=== PATIENT | female | born 1975 | race Asian ===

== ENCOUNTER 2018-02-22 12:09 | Emergency (ER) | payer OTHER ==
[2018-02-22 12:16] VITALS: BP 133/90; PULSE 84; TEMP 97.9; BMI 24.7
[2018-02-22] MEDS ORDERED: BACITRACIN 15 GM TUBE TOPICAL OINTMENT TP ONE (12:41)
--- NOTE | 2018-02-22 12:47 | PDOC ---
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 Pt has history of hypothyroid , takes synthroid. no allergies, last tetanus is UTD. Pt states the source is currently getting tested. Past History - Past Medical History Allergies/Adverse Reactions: Allergies Allergy/AdvReac Type Severity Reaction Status Date / Time No Known Allergies Allergy Verified 02/22/18 12:13 Home Medications: Ambulatory Orders Cholecalciferol (Vitamin D3) [Vitamin D3] 50,000 unit PO ASDIR 02/12/16 Levothyroxine [Synthroid -] 75 mcg PO DAILY 02/12/16 Ubidecarenone [Co Q-10] 0 mg PO DAILY 02/12/16 Anemia: Yes COPD: No Thyroid Disease: Yes (HYPO) - Immunization History Immunization Up to Date: Yes - Suicide/Smoking/Psychosocial Hx Smoking History: Never smoked Hx Alcohol Use: No Drug/Substance Use Hx: No Substance Use Type: None General Medical PMHX - Other General PMHX Angina: No Review of Systems - Review of Systems Able to Perform ROS?: Yes Is the patient limited Colombian proficient: No Constitutional: No: Symptoms Reported HEENTM: No: Symptoms Reported Respiratory: No: Symptoms reported Cardiac (ROS): No: Symptoms Reported ABD/GI: No: Symptoms Reported : No: Symptoms Reported Musculoskeletal: No: Symptoms Reported Integumentary: Yes: Symptoms Reported *Physical Exam - Vital Signs Last Vital Signs Temp Pulse Resp BP Pulse Ox 97.9 F 84 18 133/90 99 02/22/18 12:14 02/22/18 12:14 02/22/18 12:14 02/22/18 12:14 02/22/18 12:14 - Physical Exam General Appearance: Yes: Nourished, Appropriately Dressed HEENT: positive: EOMI, ADELE Extremity: positive: Normal Capillary Refill, Other (left index finger lateral side with pinpoint puncture wound from needlestick no bleeding clean ) Integumentary: positive: Normal Color, Dry, Warm Neurologic: positive: Fully Oriented, Alert, Normal Mood/Affect, Normal Response , Motor Strength 5/5 Post Exposure - ED Protocol - Exposure Treatment Washing/Decontamination: Other (betadine) Source Patient HIV Status:: Unknown Is PEP indicated?: Yes Prophylaxis for HIV discussed?: Yes Prophylaxis given?: No Prophylaxis refused?: Yes Baseline bloods drawn prophylaxis:(use *Exposure-Hosp Emp): Yes - Referrals Employee Referred to Employee Health:: Yes Procedures - Additional Procedures Progress: 02/22/18 12:52 wound cleaned with betadine and bacitracin placed Medical Decision Making - Medical Decision Making 02/22/18 12:44 accidental needlestick to left index finger wearing gloves pt squeezed blood right away and washed with rubbing alcohol pt is UTD with tetanus does not want to start PEP now, will wait for the results of the source pt will follow up with Employee Health *DC/Admit/Observation/Transfer Diagnosis at time of Disposition: Needle stick injury of finger Qualifiers: Encounter type: initial encounter Qualified Code(s): S61.239A - Puncture wound without foreign body of unspecified finger without damage to nail, initial encounter - Discharge Dispostion Disposition: HOME Condition at time of disposition: Good - Referrals - Patient Instructions Printed Discharge Instructions: How to Handle Body Fluid Exposure -- Healthcare Worker Additional Instructions: please stop in Employee Health today to assure proper follow up on the source and your blood results keep the finger clean and dry bacitracin and bandaid daily until healed - Post Discharge Activity Forms/Work/School Notes: Back to Work
[2018-02-22 13:02] LABS: BASO % 0.8 % (0-2.0); EOS % 0.5 % (0-4.5); HEMATOCRIT 35.5 % (32.4-45.2); HEMOGLOBIN 11.7 GM/dL (10.7-15.3); LYMPH % 19.7 % (8-40); MCH 29.5 pg (25.7-33.7); MCHC 32.9 g/dl (32.0-36.0); MEAN CELL VOLUME 89.7 fl (80-96); MEAN PLT VOLUME 7.6 fl (7.5-11.1); MONO % 5.3 % (3.8-10.2); NEUT % 73.7 % (42.8-82.8); PLATELET COUNT 351 K/MM3 (134-434); RBC 3.95 M/mm3 (3.60-5.2); RDW 13.1 % (11.6-15.6); WHITE BLOOD COUNT 5.9 K/mm3 (4.0-10.0)
[2018-02-22 13:30] LABS: ALBUMIN 4.3 g/dl (3.4-5.0); ALK PHOS 58 U/L (45-117); ANION GAP 6 MMOL/L (8-16); BILIRUBIN,TOTAL 0.4 mg/dL (0.2-1); BLOOD UREA NITROGEN 6 mg/dL (7-18); CALCIUM 8.6 mg/dL (8.5-10.1); CHLORIDE 103 mmol/L (98-107); CHOLESTEROL 200 mg/dL (50-200); CO2 29 mmol/L (21-32); CREATININE 0.7 mg/dL (0.55-1.3); GAMMA GLUTAMYL TRANSPEPTIDASE 19 U/L (5-85); GLUCOSE,RANDOM 100 mg/dL (74-106); LDH 148 U/L (84-246); POTASSIUM 3.9 mmol/L (3.5-5.1); SGOT/AST 14 U/L (15-37); SGPT/ALT 18 U/L (13-61); SODIUM 137 mmol/L (136-145); TOT PROT 7.7 g/dl (6.4-8.2); TRIGLYCERIDES 143 mg/dL (0-150)
[2018-02-23 05:24] LABS: HBsAG SCREEN Negative (Negative)
== END 2018-02-22 13:12 | disposition home or self-care (01) ==
LOC: JERFT 12:09
DX: Z77.21 Contact with and (suspected) exposure to potentially hazardous body fluids (principal); W46.0XXA Contact with hypodermic needle, initial encounter; Y93.9 Activity, unspecified; Y92.239 Unspecified place in hospital as the place of occurrence of the external cause; E03.9 Hypothyroidism, unspecified
CPT/HCPCS: 36415; 80053; 82465; 82977; 83615; 84478; 85025; 86317; 86706; 86803; 87340; 87389; 99281-25

== ENCOUNTER 2018-05-17 13:35 | Emergency (ER) | payer OTHER ==
[2018-05-17 13:44] VITALS: BP 126/74; PULSE 84; BMI 25.6
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
[2018-05-17] MEDS ORDERED: IBUPROFEN 600 MG TABLET (FP) PO ONE ×2 (14:21→14:24)
[2018-05-17] MEDS ORDERED: ACETAMINOPHEN 325 MG TABLET (FP) PO ONE (14:26)
[2018-05-17] MEDS ORDERED: ACETAMINOPHEN 325 MG TABLET (FP) ONE (14:28)
== END 2018-05-17 14:41 | disposition home or self-care (01) ==
LOC: JERFT 13:35
DX: M25.512 Pain in left shoulder (principal); Y04.2XXA Assault by strike against or bumped into by another person, initial encounter; Y93.F9 Activity, other caregiving; Y92.230 Patient room in hospital as the place of occurrence of the external cause; Y99.0 Civilian activity done for income or pay; E03.9 Hypothyroidism, unspecified; Y07.59 Other non-family member, perpetrator of maltreatment and neglect
CPT/HCPCS: 99281-25

== ENCOUNTER 2021-01-17 08:08 | Emergency (ER) | payer OTHER, BC ==
[2021-01-17 08:13] VITALS: BP 155/81; PULSE 77; TEMP 97.7; BMI 25.6
[2021-01-17] MEDS ORDERED: LIDOCAINE 5% TOPICAL PATCH TP ONE (08:49)
[2021-01-17] MEDS ORDERED: KETOROLAC TROMETHAMINE 60 MG/2 ML VIAL IM ONE (08:49)
[2021-01-17] MEDS ORDERED: LIDOCAINE 5% TOPICAL PATCH ONE (08:49)
[2021-01-17] MEDS ORDERED: KETOROLAC TROMETHAMINE 30 MG/1 ML VIAL ONE (08:49)
== END 2021-01-17 09:35 | disposition home or self-care (01) ==
LOC: JER 08:08
PROC: 3E0233Z Introduction of Anti-inflammatory into Muscle, Percutaneous Approach (ICD-10-PCS; principal; 2021-01-17)
DX: M25.511 Pain in right shoulder (principal); X50.0XXA Overexertion from strenuous movement or load, initial encounter; Y93.F2 Activity, caregiving, lifting
CPT/HCPCS: 73030-TC-RT-FY; 99284-25

== ENCOUNTER 2022-05-18 15:32 | Emergency (ER) | payer BC, OTHER ==
[2022-05-18 15:50] VITALS: BP 146/88; PULSE 100; RESP 14; TEMP 98.9; BMI 25.6
[2022-05-18] MEDS ORDERED: CEFAZOLIN 1 GM in DEXTROSE 5%-WATER - 50 ML IVPB ONE (17:08)
[2022-05-18] MEDS ORDERED: ceFAZolin SODIUM 1 GM VIAL ONE (17:31)
[2022-05-18 18:07] LABS: BASO % 0.6 % (0-2.0); HEMATOCRIT 28.8 % (32.4-45.2); HEMOGLOBIN 9.4 GM/dL (10.7-15.3); LYMPH % 10.2 % (8-40); MCH 26.9 pg (25.7-33.7); MCHC 32.7 g/dl (32.0-36.0); MEAN CELL VOLUME 82.4 fl (80-96); MEAN PLT VOLUME 7.7 fl (7.5-11.1); MONO % 4.7 % (3.8-10.2); NEUT % 83.5 % (42.8-82.8); PLATELET COUNT 474 10^3/uL (134-434); RDW 14.3 % (11.6-15.6); WHITE BLOOD COUNT 8.3 K/mm3 (4.0-10.0)
[2022-05-18 18:29] LABS: CALCIUM 9.4 mg/dL (8.5-10.1)
[2022-05-18 18:30] LABS: BLOOD UREA NITROGEN 9.3 mg/dL (7-18)
[2022-05-18 18:33] LABS: CREATININE 0.8 mg/dL (0.55-1.3)
[2022-05-18 18:34] LABS: BILIRUBIN,TOTAL 0.5 mg/dL (0.2-1)
[2022-05-18 18:35] LABS: TOT PROT 7.6 g/dl (6.4-8.2)
== END 2022-05-18 18:23 | disposition home or self-care (01) ==
LOC: JERFT 15:32
DX: L03.113 Cellulitis of right upper limb (principal)
CPT/HCPCS: 36415; 80053; 85025; 99284-25

== ENCOUNTER 2022-07-20 04:00 | Day surgery (SDC) | payer BC ==
[2022-07-18 14:30] VITALS: BMI 26.3
[2022-07-20] MEDS ORDERED: ONDANSETRON 4 MG/2 ML VIAL ONE (12:35)
[2022-07-20] MEDS ORDERED: LIDOCAINE HCL/PF 2% SDV 5ML VIAL ONE (12:35)
[2022-07-20] MEDS ORDERED: MIDAZOLAM HCL 2 MG/2 ML SINGLE DOSE VIAL ONE (12:35)
[2022-07-20] MEDS ORDERED: DEXAMETHASONE SOD PHOSPHATE 4 MG/1 ML VIAL ONE (12:35)
[2022-07-20] MEDS ORDERED: PROPOFOL 40 ML ONE (12:35)
[2022-07-20] MEDS ORDERED: oxyCODONE HCL 5 MG TABLET PO PRN (12:39)
[2022-07-20] MEDS ORDERED: ONDANSETRON 4 MG/2 ML VIAL IVPUSH PRN (12:39)
[2022-07-20] MEDS ORDERED: IBUPROFEN 400 MG TABLET (FP) PO PRN (12:39)
[2022-07-20] MEDS ORDERED: ACETAMINOPHEN 325 MG TABLET (FP) PO PRN (12:39)
[2022-07-20] MEDS ORDERED: KETOROLAC TROMETHAMINE 30 MG/1 ML VIAL ONE (13:17)
[2022-07-20] MEDS ORDERED: ACETAMINOPHEN 1000 MG/100 ML BAG IVPB ONE (13:36)
[2022-07-20] MEDS ORDERED: LACTATED RINGERS SOLUTION 1,000 ML IV SCH (13:45)
[2022-07-20] MEDS ORDERED: ACETAMINOPHEN INJECTION 100 ML IVPB ONE (13:46)
[2022-07-20 17:49] VITALS: RESP 20; TEMP 97.8
[2022-07-20 17:56] VITALS: BP 127/75; PULSE 65
== END 2022-07-20 16:47 | disposition home or self-care (01) ==
LOC: JASU-SURG 04:00
PROVIDERS: ATTEND Obstetrics & Gynecology
PROC: 0UDB8ZX Extraction of Endometrium, Via Natural or Artificial Opening Endoscopic, Diagnostic (ICD-10-PCS; principal; 2022-07-20 12:30)
DX: N92.0 Excessive and frequent menstruation with regular cycle (principal); D25.9 Leiomyoma of uterus, unspecified
CPT/HCPCS: 81025; 86850; 86900; 86901; 88305-TC; 94760

== ENCOUNTER 2023-12-15 04:30 | Day surgery (SDC) | payer BC ==
[2023-12-05 15:15] VITALS: BMI 25.7
[2023-12-15 09:42] VITALS: TEMP 97.9
[2023-12-15 10:20] VITALS: BP 136/68; PULSE 68; RESP 16
== END 2023-12-15 10:20 | disposition home or self-care (01) ==
LOC: JASU-ENDO 04:30
PROVIDERS: ATTEND Internal Medicine Gastroenterology
PROC: 0DB98ZX Excision of Duodenum, Via Natural or Artificial Opening Endoscopic, Diagnostic (ICD-10-PCS; 2023-12-15)
PROC: 0DB68ZX Excision of Stomach, Via Natural or Artificial Opening Endoscopic, Diagnostic (ICD-10-PCS; 2023-12-15)
PROC: 0DBN8ZX Excision of Sigmoid Colon, Via Natural or Artificial Opening Endoscopic, Diagnostic (ICD-10-PCS; principal; 2023-12-15 08:30)
DX: Z12.11 Encounter for screening for malignant neoplasm of colon (principal); K63.5 Polyp of colon; K29.50 Unspecified chronic gastritis without bleeding; K21.00 Gastro-esophageal reflux disease with esophagitis, without bleeding
CPT/HCPCS: 81025; 88305-TC; 88342-TC